=== PATIENT | male | born 1965 | race Caucasian/White ===

== ENCOUNTER 2023-09-01 22:08 | Inpatient (IN) | payer OTHER, SELFPAY ==
[2023-09-01] VITALS (24 sets, daily range): BP systolic 37–195; BP diastolic 13–141; BMI 52.6
[2023-09-01 20:11] LABS: Glucose - Point of Care 102 mg/dl (70-99)
--- NOTE | 2023-09-01 20:14 | ED.GENMED ---
History of Present Illness
General
Chief Complaint: Unresponsive
Source: ambulance crew
Exam Limitations: clinical condition
Time Seen by Provider: 09/01/23 20:10
History of Present Illness
History of Present Illness:
See MDM
Past History
Past History
ED Past Medical History: Other (unknown)
ED Past Surgical History: Other (unknown)
Social History
Tobacco: Non-smoker
Alcohol: None
Phy Exam
Physical Exam
Physical Exam:
See MDM
Scores
NIH Stroke Score
Level of Consciousness: 0 - Alert
LOC Questions: 0-Answers both correctly
LOC Commands: 0-Performs both correctly
Best Horizontal Gaze: 1-Partial gaze palsy
Visual Horn: 0=Normal, no visual loss
Facial Palsy: 3=Complete paralysis
Motor - Right Arm: 3=None vs. gravity
Motor - Left Arm: 3=None vs. gravity
Motor - Right Le-None vs. gravity
Motor - Left Le-None vs. gravity
Limb Ataxia: 0-Absent
Sensation: 0-Normal
Best Language: 1-Mild aphasia
Dysarthria: 0-Normal
Extinction and Inattention: 0-No abnormality
Total Score:: 17
Course
Orders/Labs/Results
Orders:
Orders
09/01/23 20:10
CT Head W/o Cont STROKE ALERT Urgent
Reason For Exam: aphasia, R side weakness
CT Head/Neck Ang STROKE ALERT Urgent
Comment:
Reason For Exam: aphasia, R side weakness
NEUROLOGY CONSULT Urgent
Consulting Provider: Pamela Valdes
Was physician already notified: Yes
Cardiac Monitoring- Treatment ONCE
09/01/23 20:11
Electrocardiogram (*1) Stat
Reason for Study: Other
Other Reason for Exam: neuro symptoms
EKG- Treatment ONCE
09/01/23 20:17
Complete Blood Count/With Diff Urgent
Comprehensive Metabolic Panel Urgent
PTT Urgent
Prothrombin Time Urgent
Troponin I Urgent
09/01/23 20:21
Lactic Acid Q4H
Comment: CANCEL 2nd LACTIC ACID IF 1st LACTIC ACID IS LESS THAN 2
Blood Culture Q30M
JOSE RAFAEL Source: Blood/Venous
Specimen Description:
Blood Culture Q30M
JOSE RAFAEL Source: Blood/Venous
Specimen Description:
09/01/23 20:54
Acetaminophen [Tylenol/Feverall] 650 mg RECTAL NOW STA
Piperacillin/Tazo 3.375 Gram [Zosyn] 3.375 gram in 50 ml IV NOW
Vancomycin [Vancocin] 2,000 mg 0.9% Sodium Chloride 500 ml [Nss] 500 ml IV NOW
09/01/23 20:55
0.9% Sodium Chloride 1000 ml [Nss] 1,000 ml IV BOLUS
CR Chest Portable - 1 View Urgent
Comment:
Reason For Exam: febrile, SOB
Reason Study Needs to be Portable: Patient Unstable
09/01/23 20:59
Piperacillin/Tazo 3.375 Gram [Zosyn] 3.375 gram in 50 ml .ROUTE .STK-MED
09/01/23 21:00
Acetaminophen [Tylenol/Feverall] 650 mg .ROUTE .STK-MED ONE
09/01/23 21:02
COVID-19 Antigen Urgent
Source: Nasal Swab
Influenza A+B Rapid Molecular Urgent
JOSE RAFAEL Source: Nasal Swab
Specimen Description:
09/01/23 21:06
NORepinephrine 4 MG/250 ML [Levophed] 4 mg in 250 ml .ROUTE .STK-MED
NORepinephrine 4 MG/250 ML [Levophed] 4 mg in 250 ml IV NOW
Initial dose in mcg/min, then titrate:: 2
Titrate to keep:: MAP > 65 mmHg
Titrate by mcg/min:: 1-2 mcg/min
Frequency of titrations (minutes):: 5
Maximum dose in ICU in mcg/min:: 30
Maximum dose in IMU in mcg/min:: 8
Maximum dose in IVU in mcg/min:: 4
Begin to taper infusion when:: Remained at goal for 4hrs
Taper by mcg/min:: 1-2 mcg/min
Frequency of taper (minutes) if patient maintains goal:: 30
Taper to off?: Yes
If infusion off & no longer maintaining goal:: Contact Provider
09/01/23 21:09
Vancomycin [Vancocin] 1,500 mg 0.9% Sodium Chloride [Nss] 20 ml 0.9% Sodium Chloride 250 ml [Nss] 250 ml IV NOW
09/02/23 00:30
Lactic Acid Q4H
Comment: CANCEL 2nd LACTIC ACID IF 1st LACTIC ACID IS LESS THAN 2
Abnormal Lab Results
09/01/23 09/01/23 09/01/23
20:10 20:17 20:21
WBC 11.8 H 10^3/uL
(4.8-10.8)
RBC 4.07 L 10^6/uL
(4.70-6.10)
Hgb 12.9 L g/dL
(13.0-18.0)
Hct 36.8 L %
(39.0-52.0)
MCH 31.7 H pg
(27.0-31.0)
Abs Immat Gran (auto) 0.7 H 10^3/uL
(0-0.05)
Absolute Neuts (auto) 10.4 H 10^3/uL
(1.4-6.5)
Absolute Lymphs (auto) 0.2 L 10^3/uL
(1.2-3.4)
Immature Gran % 5.8 H %
(0-0.5)
Neutrophils % 88.2 H %
(42.2-75.2)
Lymphocytes % 1.7 L %
(20.5-51.1)
PT 16.3 H Sec
(11.4-14.6)
Sodium 130 L mmol/L
(135-145)
Potassium 3.1 L mmol/L
(3.5-5.1)
Carbon Dioxide 17 L mmol/L
(22-30)
BUN 55 H mg/dl
(9-20)
Creatinine 4.0 H mg/dL
(0.7-1.3)
Lactic Acid 2.4 H mmol/L
(0.7-2.0)
Calcium 7.2 L mg/dl
(8.4-10.2)
Total Bilirubin 1.7 H mg/dl
(0.2-1.3)
Troponin I 0.324 H* ng/ml
Total Protein 5.3 L g/dl
(6.3-8.2)
Albumin 2.4 L g/dl
(3.5-5.0)
POC Glucose 102 H mg/dl
(70-99)
09/01/23 20:17
09/01/23 20:17
Vital Signs
Initial and Last Documented VS:
Initial Vital Signs
Pulse Resp BP Pulse Ox
83 17 85/54 99
09/01/23 20:07 09/01/23 20:07 09/01/23 20:07 09/01/23 20:07
Last Documented Vital Signs
Pulse Resp BP Pulse Ox
83 17 85/54 99
09/01/23 20:07 09/01/23 20:07 09/01/23 20:07 09/01/23 20:07
MDM/Problems Addressed
Differential Diagnosis Includes:
HPI and MDM Narrative:
58-year-old male presenting as a prearrival stroke alert. EMS indicating aphasia, facial droop and right-sided weakness. It is not certain when the symptoms started. They were called at 7:30 PM. They state that his brother noticed the symptoms
and called 911. However, the brother had indicated he was last seen normal 'several hours ago'
On arrival, patient is weak and fatigued. He does appear to have aphasia. He is following commands but is globally weak. He is moving his left side more than his right side. Patient found to be hypotensive. He has significant lymphedema to both
lower extremities with cellulitis and weeping
Physical exam
General: Elevated, lethargic
HEENT: protecting airway. Dry mucous membranes. Mild left gaze palsy
Neck: supple
CV: No evidence of cyanosis. Regular rate and rhythm
Resp: No accessory muscle use. Lungs clear
Abd: Non-distended
Extremities: No deformities
Neuro: alert. Aphasic. Left gaze palsy, left facial droop, global weakness right greater than left
Psych: Flat affect
Skin: Skin breakdown to both legs cellulitis
Problems Addressed including Acute and Chronic Conditions affecting care:
1. Strokelike symptoms
Acuity: acute
Prognosis: unstable
Details: Given the uncertainty of when the symptoms actually started, patient is not a great TNK candidate. Will obtain CT head and CT angio
2. Cellulitis
Acuity: acute
Prognosis: unstable
Details: Will start antibiotics
3. Acute renal failure
Acuity: acute
Prognosis: unstable
Details: Likely in the setting of dehydration and sepsis. Will continue IV fluid
4. Septic shock
Acuity: acute
Prognosis: unstable
Details: Likely source is cellulitic legs. Patient started on Zosyn and Vanco
5. [ ]
Acuity:
Prognosis:
Details:
Updates
8:30 PM Case discussed with neurologist on-call. I explained that his onset of symptoms is unknown and that he has infectious findings as well. At this point, it was shared decision making to not start TNK. Will obtain CTA
8:40 PM Brother is at bedside who found him in this situation. Brother states that the last time he was spoken to was 2 PM. This confirms that he is not a TNK candidate.
Brother states that the patient was complaining of leg pain and swelling over the weekend
8:50 PM radiology indicating no large vessel occlusion on CTA
8:55 PM patient found to be febrile. Will start broad-spectrum antibiotics and continue IV fluids
9:08 PM blood pressure continues to drop. Will start Levophed and admit
Differential Diagnosis (but not limited to): Hemorrhagic stroke, ischemic stroke, sepsis, cellulitis
Testing considered: CT perfusion
Drug therapy (if applicable): OTC meds, please see d/c instruction regarding Rx drugs
Amount and/or Complexity of Data Reviewed
Clinical info obtained from: Brother and EMS
External data reviewed: N/A
Labs I independently reviewed (but not limited to): Leukocytosis, mild troponin elevation, elevated creatinine
Radiology: The CT scan was personally and independently reviewed. In addition, official CT report reviewed.
Pulse Ox: not hypoxic
EKG independently reviewed: N/A
Steward/Stewardess Night: Sinus rhythm
Critical Care: The high probability of a clinically significant, sudden or life threatening deterioration of the neurovascular and cardiopulmonary system(s) required my full and direct attention, intervention and personal management. The aggregate
critical care time was 55 minutes. This time is in addition to time spent performing reported procedures but includes the following:
[x] Data Review and interpretation
[x] Patient assessment and monitoring of vital signs
[x] Documentation
[x] Medication orders and management
Risk of Complication:
Social Determinants of health: Good social support
Discussed with other providers: Neurologist, radiologist, hospitalist
Escalation of Care includes Admit/Obs: Given the concern for sepsis and septic shock, will admit
Occasional wrong word or 'sound a like' substitutions may have occurred due to the inherent limitations of voice recognition software. Read the chart carefully and recognize, using context, where substitutions have occurred.
*Critical Care Note
Total Time (30-74mins, 75-104mins- exclusive of procedures): 55 min
ED Attending Note
-
Portions of this chart may have been created with voice recognition software.� Occasional wrong word or��sound alike� substitutions may have occurred due to the inherent limitations of voice recognition software.
Discharge Plan
Departure
Patient Disposition: Admit
Date of Disposition: 09/01/23
Time of Disposition: 21:10
Admit to: ICU
Presentation/result/management discussed w/ accepting MD/DO: Hospitalist
Discharge Problem:
Septic shock, Cellulitis, Acute renal failure
Prescriptions:
No Action
furosemide 40 mg tablet
80 mg PO DAILY
atorvastatin 80 mg tablet
80 mg PO HS
carvedilol 25 mg tablet
25 mg PO BID
clopidogrel 75 mg tablet
75 mg PO DAILY
ezetimibe 10 mg tablet
10 mg PO HS
Entresto 97-103 mg tablet
1 tab PO BID
Referrals:
UNKNOWN - PT NOT,INTERVIEWE [Family Provider] -
Interventions
Interventions:
*General Assessment Last Done: 09/01/23 20:07
[2023-09-01 20:23] LABS: % Basophils 0.8 % (0-2); % Immature Granulocytes 5.8 % (0-0.5); % Lymphocytes 1.7 % (20.5-51.1); % Monocytes 3.5 % (1.7-9.3); % Neutrophils 88.2 % (42.2-75.2); Absolute Basophils 0.1 10^3/uL (0-0.2); Absolute Immature Granulocytes 0.7 10^3/uL (0-0.05); Absolute Lymphocytes 0.2 10^3/uL (1.2-3.4); Absolute Monocytes 0.4 10^3/uL (0.1-0.6); Absolute Neutrophils 10.4 10^3/uL (1.4-6.5); Hematocrit 36.8 % (39.0-52.0); Hemoglobin 12.9 g/dL (13.0-18.0); Mean Corp Hgb Conc. 35.1 g/dL (33.0-37.0); Mean Corpuscular Hgb 31.7 pg (27.0-31.0); Mean Corpuscular Volume 90.4 fL (80.0-94.0); Mean Platelet Volume 9.7 fL (7.4-10.4); Nucleated Red Blood Cells % 0 % (-); Platelet Count 193 10^3/uL (130-400); Red Blood Cell Count 4.07 10^6/uL (4.70-6.10); Red Cell Dist. Width 13.2 % (11.5-14.5); White Blood Cell Count 11.8 10^3/uL (4.8-10.8)
[2023-09-01 20:34] LABS: INR 1.33; PT 16.3 Sec (11.4-14.6)
[2023-09-01 20:42] LABS: Lactic Acid 2.4 mmol/L (0.7-2.0)
[2023-09-01 20:45] LABS: ALT (SGPT) 18 U/L (0-50); AST (SGOT) 28 U/L (17-59); Albumin 2.4 g/dl (3.5-5.0); Alkaline Phosphatase 56 U/L (38-126); Blood Urea Nitrogen 55 mg/dl (9-20); Calcium 7.2 mg/dl (8.4-10.2); Carbon Dioxide 17 mmol/L (22-30); Chloride 106 mmol/L (98-107); Glucose 95 mg/dl (70-99); Potassium 3.1 mmol/L (3.5-5.1); Sodium 130 mmol/L (135-145); Total Bilirubin 1.7 mg/dl (0.2-1.3); Total Protein 5.3 g/dl (6.3-8.2); eGFR 16.74
--- NOTE | 2023-09-01 20:47 | PHANOTE ---
Med Rec Note:
Pt's family unsure of all of pt's medications. Home med list compiled from Dr Phan.
[2023-09-01 20:54] LABS: Troponin I 0.324 ng/ml
[2023-09-01] MEDS: TYLENOL/FEVERALL 650 MG RECTAL (21:00)
[2023-09-01] MEDS: ZOSYN 50 IV (21:02)
[2023-09-01] MEDS: NSS 1000 IV ×3 (21:03→21:32)
[2023-09-01] MEDS: LEVOPHED 250 IV (21:09)
--- NOTE | 2023-09-01 21:17 | HPS.HSE ---
Family Physician
-
Family Physician: INTERVIEWE UNKNOWN - PT NOT
Chief Complaint
-
Confusion
History of Present Illness
58-year-old male, past medical history of hypertension, hyperlipidemia, chronic lower extremity lymphedema; presented initially for stroke alert.
Patient is obtunded in ER, hence unable to provide history.
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 Patient was found slumped back on his chair and was mumbling words. At baseline, he is AOx3 and very functional.
According to brother, patient has been sick with fever and chills for a few days. Patient had also complained to his brother that his leg has gotten more swollen.
Patient was initially presented for stroke alert. His CT head and CT angio were negative.
He remained confused (hypoactive delirium) in the ED, and was noted to be hypotensive with likely septic shock and source from his left leg cellulitis. Levophed was started and will admit pt to ICU.
Medical History
Past Medical History
Past Medical History: Reports Other
Additional Past Medical History:
hypertension, hyperlipidemia, chronic lower extremity lymphedema, myocardial infarction x 2 status post cardiac stent, morbid obesity BMI 52
Past Surgical History: Reports Cardiac (Cardiac stent)
Social History
Tobacco: Non-smoker
Alcohol: None
Living: Alone
Family History
Family History: Not pertinent
Allergies / Home Medications
Allergies reflects when Allergies were last updated in [facility].
Home Medications with original date entered in [facility]
Allergy/Medication List:
Medications on admission are unable to be verified or confirmed at this time.
Review of Systems
-
Unable to obtain full review of systems at this time due to: Acuity
Constitutional: Reports See HPI
Neurological: Reports Other (Confusion, unable to provide history)
Physical Exam
Vital Signs
Vital Signs
Pulse Resp BP Pulse Ox
83 17 85/54 99
09/01/23 20:07 09/01/23 20:07 09/01/23 20:07 09/01/23 20:07
Physical Exam
General: Well Developed, Well Nourished and Morbidly Obese
HEENT: NormoCephalic and Oxygen (Nonrebreather mask)
Respiratory: Clear and Accessory Resp Muscle Use
Cardiac: S1/S2 and Regular Rhythm; No Murmur or Rub
GI: Soft, Non Tender, Non Distended and Normal Bowel Sounds; No Organomegaly
Rectal: Deferred by Provider
Musculoskeletal: No Clubbing, No Cyanosis, Edema, Left Lower Extremity and Edema, Right Lower Extremity
Skin: Other (Left lower extremity cellulitis)
Neuro: No Awake
Laboratory Results
-
09/01/23 20:17
09/01/23 20:17
Laboratory Results
PT 16.3 Sec (11.4-14.6) H 09/01/23 20:17
INR 1.33 09/01/23 20:17
APTT 32.0 Sec (23.4-35.0) 09/01/23 20:17
Lactic Acid 2.4 mmol/L (0.7-2.0) H 09/01/23 20:21
Total Bilirubin 1.7 mg/dl (0.2-1.3) H 09/01/23 20:17
AST 28 U/L (17-59) 09/01/23 20:17
ALT 18 U/L (0-50) 09/01/23 20:17
Alkaline Phosphatase 56 U/L (38-126) 09/01/23 20:17
Troponin I 0.324 ng/ml H* 09/01/23 20:17
Data Reviewed
-
Lab Data: Labs Reviewed by me
Impression/Plan
-
58-year-old male, past medical history of hypertension, hyperlipidemia, chronic lower extremity lymphedema; presented initially for stroke alert.
Patient is obtunded in ER, hence unable to provide history.
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 Patient was found slumped back on his chair and was mumbling words. At baseline, he is AOx3 and very functional.
According to brother, patient has been sick with fever and chills for a few days. Patient had also complained to his brother that his leg has gotten more swollen.
Patient was initially presented for stroke alert. His CT head and CT angio were negative.
He remained confused (hypoactive delirium) in the ED, and was noted to be hypotensive with likely septic shock and source from his left leg cellulitis. Levophed was started and will admit pt to ICU.
A/P:
# Likely septic shock POA due to LLE cellulitis
# Hypoactive delirium/acute TME on admission
# Chronic bilateral lower extremity lymphedema
Follow blood culture
Check lower extremity ultrasound
Status post vancomycin/Zosyn in ER, continue with Vanc/Ancef
Status post 2 L NSS in ER, will give additional 3 L to complete sepsis fluid bundle, cont maintenance IVF following that
ID CS
Wound care CS
CXR, UA were ordered as well for completeness sake, follow-up results
COVID and flu negative
Continue Levophed for BP support, admit to ICU with assembly person consult
# Possible acute hypoxic respiratory failure
Patient placed on nonrebreather in ED with saturation at 100%, wean O2 as tolerated
Follow chest x-ray
# Hypokalemia
Replete K IV and follow mag level
# Stroke alert on admission
# Hypoactive delirium/acute TME on admission
CT head and CT angio negative
Neuro was consulted
Monitor mental status, N.p.o. for now
# PHIL versus CKD
Scr 4.0, unknown baseline
IVF as above
Hold prior to admission Lasix and Chusto, avoid nephrotoxin
Check kidney ultrasound
Check UA/urine culture for completeness sake
Bladder scan with retention protocol
Renal CS
# Elevated troponin, suspect demand ischemia
Troponin 0.324, follow repeat levels
EKG right bundle branch block
# History of myocardial infarction x 2, with cardiac stent per Brother
Patient sees guest relations receptionist at [facility]
Hold prior to admission cardiac meds
Consider cardiology consult
# Hyponatremia
monitor
# Hypertension
Currently in shock, hold prior to admission BP meds
# Hyperlipidemia
resume statin when able
# Morbid obesity, BMI 52
DVT prophylaxis: HSQ
FC
[2023-09-01] MEDS: VANCOCIN 300 MG IV (21:19)
[2023-09-01] MEDS: VANCOCIN 300 ML IV (21:19)
[2023-09-01 21:38] LABS: COVID-19 Antigen Negative (Negative)
[2023-09-01] MEDS: KCL 270 MEQ IV (22:36)
--- NOTE | 2023-09-01 22:52 | RESPNOTE ---
2 attempts at ABG made while in ER. RN states ICU will place lise in pt.
--- NOTE | 2023-09-01 22:53 | PHA.VAN.IN ---
Assessment
- Assessment
Renal Function: Unknown baseline
Concomitant Antimicrobials: ANCEF
- Previous Dosing Experience
Previous Regimen: NONE
Plan
- Plan
Initial / Loading Dose: 1500MG
Maintenance Regimen: DOSING BY RANDOM LEVEL
Monitoring: RANDOM VANCOMYCIN LEVEL 09/02/23 AM
Pharmacokinetics Vancomycin I
- -
Patient Age: 58
Patient Sex: Male
Vancomycin Day #: 1
Indication: Skin And Soft Tissue (SEPTIC SHOCK)
Requesting Provider: KEVIN
Height / Weight:
Height 6 ft
Actual Weight 175.7 kg
Pertinent Past Medical History: MORBID OBSEITY, MD X 2
- Vital Signs / Lab Results
Temp Pulse Resp BP Pulse Ox
103.5 F H 77 31 140/115 99
09/01/23 20:55 09/01/23 22:07 09/01/23 22:07 09/01/23 22:07 09/01/23 22:07
Lab Results - Hematology
09/01/23
20:17
WBC 11.8 H
Lab Results - Chemistry
09/01/23
20:17
BUN 55 H
Creatinine 4.0 H
Albumin 2.4 L
09/01/23
20:21
Lactic Acid 2.4 H
Microbiology Results
09/01/23 21:02 Influenza Types A & B (MARY) - Final
Nasal Swab Negative for Influenza A & B, NAAT
Negative results must be combined with clinical observations
and patient history.
Nucleic Acid Amplification test (NAAT)performed on the
[employer] platform.
--- NOTE | 2023-09-01 23:05 | PTCARENOTE ---
Pt arrived to floor via stretcher from the ED. Pt transferred from stretcher to bed with max assistance. Upon initial assessment, pt able to open eyes to voice, nod head, and follow simple commands. Pt placed on heart monitor, HR in the 70's. Pt
tachypneic with significant abd breathing. POX being applied. Pt became cool and clammy, and no longer responsive. HR continued to kaity down, no palpable pulse. Code 9 called. See code 9 documentation. No admission done due to pt coding within
minutes of arrival to floor. Brother and DARCIE present at bedside.
--- NOTE | 2023-09-01 23:32 | W.PN.UPDATE ---
Update Note
Progress Note Update
Pt was sent to the ICU and coded several times (with ROSC several times)- total duration was about 1 hour.
He had received several doses of epi pushes, bicarb pushes and calcium.
Levo restarted and Yovany drip added.
Updated family (brother and DARCIE) in person.
Grim prognosis with prolonged CPR and brother agreed to NOT resuming CPR if pt codes again. Continue current maximal support.
--- NOTE | 2023-09-01 23:32 | W.PN.ANESINT ---
Anesthesia Intubation Note
- Intubation Note
Intubation Note:
Diagnosis: code, CPR in progress
Blade: videoscope mac 4
Tube Size: 8.0
Depth: 24@lip
Side Taped: care to RT, RT to tape ETT
Drugs Used: none
Grade View: I
EtCO2 Present: +sustained color change and sustained ETCO2 monitoring by RT
Atraumatic: yes
Attempts: 1
Insertion Start and Stop Time: 09/01/22 23:15-23:25
SaO2 Pre: UTO
SaO2 Post: 100%
Glidescope Used: yes
Other Airway Adjustments:
Pre-Oxygenated: yes
Portable Chest X-Ray:
RSI:
Suctioned:
Bilateral Breath Sounds Confirmed: yes
Vent Settings:
Settings per ___Attending Physician
[2023-09-02] VITALS (13 sets, daily range): BP systolic 49–161; BP diastolic 15–126
--- NOTE | 2023-09-02 01:44 | W.PN.UPDATE ---
Addendum entered and electronically signed by FLORESITA Gay 09/02/23 02:56:
Next of KIN: Edwin Landeros ( Brother) [phone].
Addendum entered and electronically signed by FLORESITA Gay 09/02/23 02:53:
Cook Dessert updated and notify. (Nora Merchant)
Original Note:
Update Note
Progress Note Update
2310 went to patient room for initial assessment. On assessment, the patient was agonal breathing and unresponsive. The bedside nurse was instructed to bag the patient and JAVA SWING DEVELOPER was called for intubation. The patient continued to decline and became
bradycardic and pulseless. CPR started at 3 and continue to 5 when ROSC regain. Patient began to hemodynamically decline and levophed drip restarted from ED. EPI drip and BRENNA ordered. 2343 patient became pulseless, and CPR again restarted
and continue to 2357, when ROSC regain. At this point the patient was on EPI, Levophed and BRENNA drip and continued�hemodynamically to decline. Again, patient rearrest at 0007 to 0017. ROSC again achieved. Dr Hunter discussed poor prognosis with
family and the decision made was made to make the patient a DNR. Patient passed at 0038. Brother at bedside. Refer to code sheet for specifics.�
--- NOTE | 2023-09-02 01:45 | W.PN.DEATH ---
Pronouncement of
-
Called to see patient to pronounce.
No spontaneous heart tones or respirations noted.
Patient not responsive to verbal stimuli.
Patient is pronounced .
Time of : 00:38
Date of : 09/02/23
Cause of : Acute hypoxic respiratory failure due to septic shock
Family Notified: Yes
--- NOTE | 2023-09-02 03:22 | W.DCSUMMARY ---
Discharge Summary
Discharge Data
Date of Admission: 09/01/23
Date of Discharge: 09/02/23
-
Pending Results: No
Hospital Course
Principal Diagnosis:
Hypoactive delirium/acute metabolic encephalopathy on admission, likely related to septic shock
Septic shock source likely left lower extremity cellulitis
Acute kidney injury versus chronic kidney disease unclear stage
Pulseless electric activity cardiac arrest
Chronic Diagnoses:�
Chronic bilateral lower extremity lymphedema
History of myocardial infarction x 2, with cardiac stent per brother
Hypertension
Hyperlipidemia
Morbid obesity, body mass index at 52
Clinical course:�
This was a 58-year-old male, past medical history as stated above, who initially presented for stroke alert.
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 The patient was apparently found slumped back on his chair and was mumbling words. According to the brother, patient was AOx3 and very functional
at baseline.
Brother noted that the patient had been sick with fever and chills for the past few days. The patient had complained about his leg becoming more swollen.
The patient initially presented to the emergency room for stroke alert. His CT head and CT angio were negative.
He remained confused (hypoactive delirium), and was noted to be hypotensive with presumed septic shock (source likely from his left leg cellulitis). IV antibiotics were given, and Levophed started. The patient was admitted to the ICU.
Upon arrival to the ICU, he was noted to be in PEA cardiac arrest and CPR was started. He coded several times- total duration was about 1 hour.
He had received several doses of epi pushes, bicarb pushes and calcium during CPR.
In addition to Levophed drip, aubrey drip was also started.
Brother and [id number] were updated in person.
Given his grim prognosis with prolonged CPR, his brother agreed to changing his CODE STATUS to DNR.
The patient�continued�to decline hemodynamically and he at 0038.�Brother was at bedside at pronouncement.
�
Discharge Plan
-
Patient Disposition:
Referrals:
UNKNOWN - PT NOT,INTERVIEWE [Family Provider] -
Prescriptions:
No Action
furosemide 40 mg tablet
80 mg PO DAILY
atorvastatin 80 mg tablet
80 mg PO HS
carvedilol 25 mg tablet
25 mg PO BID
clopidogrel 75 mg tablet
75 mg PO DAILY
ezetimibe 10 mg tablet
10 mg PO HS
Entresto 97-103 mg tablet
1 tab PO BID
Discharge Date and Time
Discharge Date/Time: 09/02/23 02:00
== END 2023-09-02 02:00 | disposition expired | DRG 871 ==
LOC: ICU 22:08
PROVIDERS: ADMITTING PHYSICIAN Internal Medicine; EMERGENCY PHYSICIAN Student in an Organized Health Care Education/Training Program
PROC: 5A12012 Performance of Cardiac Output, Single, Manual (ICD-10-PCS; 2023-09-01)
PROC: 3E033XZ Introduction of Vasopressor into Peripheral Vein, Percutaneous Approach (ICD-10-PCS; 2023-09-01)
DX: A41.9 Sepsis, unspecified organism (principal); G93.41 Metabolic encephalopathy; R65.21 Severe sepsis with septic shock; J96.01 Acute respiratory failure with hypoxia; R47.01 Aphasia; E87.1 Hypo-osmolality and hyponatremia; L03.116 Cellulitis of left lower limb; N17.9 Acute kidney failure, unspecified; L03.115 Cellulitis of right lower limb; Z68.43 Body mass index [BMI] 50.0-59.9, adult; E86.0 Dehydration; R29.810 Facial weakness; I89.0 Lymphedema, not elsewhere classified; I10 Essential (primary) hypertension; E78.5 Hyperlipidemia, unspecified; E66.01 Morbid (severe) obesity due to excess calories; I46.9 Cardiac arrest, cause unspecified; E87.6 Hypokalemia; I45.10 Unspecified right bundle-branch block; I25.2 Old myocardial infarction; Z95.5 Presence of coronary angioplasty implant and graft; Z11.52 Encounter for screening for COVID-19; Z79.02 Long term (current) use of antithrombotics/antiplatelets; Z66 Do not resuscitate
CPT/HCPCS: 70450; 70496; 70498; 71045; 76775; 80053; 82962; 83605; 84484; 85025; 85610; 85730; 87040; 87502; 87811; 93005; 93970; 96361; 96365; 96367; 96375; 99291; Q9967